=== PATIENT | male | born 1950 | race Caucasian/White ===

== ENCOUNTER 2020-10-03 13:22 | Emergency (ER) | payer MEDICARE, OTHER ==
[~2020-10-03 13:22] MED LIST: ACETAMINOPHEN325 MG PO; AMBIEN5 MG PO; BRILINTA90 MG PO; DOXYCYCLINE HY100 MG PO; FLOMAX0.4 MG PO; LIPITOR40 MG PO; MOBIC7.5 MG PO; NITROQUIK SL0.4 MG SL; OMEPRAZOLE 20MG20 MG PO; OMEPRAZOLE20 M1 PO; ONDANSETRON ODT4 MG PO; SARNA ANTI-ITC222 ML TOP; TAMSULOSIN HCL0.4 MG PO; TOPROL XL 25MG25 MG PO; VENTOLIN HFA IN18 GM INH; ZESTRIL2.5 MG PO
[2020-10-03 14:36] LABS: BASOPHIL 0.9 % (0-2); EOSINOPHIL 4.8 % (0-7); HCT 42.8 % (42.0-52.0); HGB 14.3 g/dl (13.2-18.0); LYMPHOCYTE 30.6 % (15-48); MCH 30.4 pg (25.0-31.0); MCHC 33.4 g/dL (32.0-36.0); MCV 90.9 fL (78.0-100.0); MONOCYTE 11.9 % (0-12); MPV 11.2 fL (6.0-9.5); NEUTROPHIL 51.6 % (41-80); NRBC 0; PLT 152 K/uL (150-400); RBC 4.71 M/uL (4.70-6.00); RDW 12.6 % (11.5-14.0); WBC 5.5 K/uL (4.0-10.5)
[2020-10-03 14:41] LABS: BILIRUBIN NEGATIVE (NEGATIVE); BLOOD NEGATIVE Ery/uL (NEGATIVE); CLARITY CLEAR (CLEAR); COLOR YELLOW (YELLOW); GLUCOSE (U) NORMAL (NORMAL); LEUKOCYTES NEGATIVE Leu/uL (NEGATIVE); NITRITE NEGATIVE (NEGATIVE); PROTEIN NEGATIVE (NEGATIVE); UROBILINOGEN 0.2 mg/dL (0.2-1.0)
[2020-10-03 14:45] LABS: BILIRUBIN - TOTAL 1.1 mg/dL (0.2-1.0); BUN/CREAT RATIO (CALC) 15.2 RATIO; CREATININE 0.99 mg/dL (0.67-1.17); POTASSIUM 4.6 mmol/L (3.5-5.1)
[2020-10-03] MEDS ORDERED: CYCLOBENZAPRINE10 MG PO (15:56)
[2020-10-03] MEDS ORDERED: HYDROCODON-ACE1 EAC2 PO (15:56)
== END 2020-10-03 16:29 | disposition home or self-care (01) ==
LOC: FER 13:22
PROVIDERS: Emergency Medicine
DX: T14.8XXA Other injury of unspecified body region, initial encounter (principal); M54.5 Low back pain; N13.30 Unspecified hydronephrosis; I51.9 Heart disease, unspecified; K21.9 Gastro-esophageal reflux disease without esophagitis; Z88.5 Allergy status to narcotic agent; Z95.5 Presence of coronary angioplasty implant and graft; Z90.49 Acquired absence of other specified parts of digestive tract; W19.XXXA Unspecified fall, initial encounter
CPT/HCPCS: 36415; 80053; 81003; 85025; J1885; J2405

== ENCOUNTER 2021-06-23 23:48 | Emergency (ER) | payer MEDICARE, OTHER ==
[~2021-06-23 23:48] MED LIST changes: +CYCLOBENZAPRINE10 MG PO; +HYDROCODON-ACE1 EAC2 PO
[2021-06-24] MEDS ORDERED: KEFLEX250 MG PO (01:42)
== END 2021-06-24 01:45 | disposition home or self-care (01) ==
LOC: FER 23:48
DX: S60.221A Contusion of right hand, initial encounter (principal); I25.2 Old myocardial infarction; J45.909 Unspecified asthma, uncomplicated; Z88.5 Allergy status to narcotic agent; Z88.6 Allergy status to analgesic agent; W27.8XXA Contact with other nonpowered hand tool, initial encounter
CPT/HCPCS: 73130

== ENCOUNTER 2022-01-02 10:10 | Emergency (ER) | payer MEDICARE, OTHER ==
[~2022-01-02 10:10] MED LIST changes: +KEFLEX250 MG PO
[2022-01-02 11:01] LABS: BASOPHIL 0.6 % (0-2); EOSINOPHIL 1.8 % (0-7); HCT 37.9 % (42.0-52.0); HGB 13.1 g/dl (13.2-18.0); LYMPHOCYTE 14.1 % (15-48); MCH 31.2 pg (25.0-31.0); MCHC 34.6 g/dL (32.0-36.0); MCV 90.2 fL (78.0-100.0); MONOCYTE 9.9 % (0-12); MPV 10.6 fL (6.0-9.5); NEUTROPHIL 73.4 % (41-80); NRBC 0; PLT 163 K/uL (150-400); RDW 12.7 % (11.5-14.0); WBC 8.9 K/uL (4.0-10.5)
[2022-01-02 11:17] LABS: ALBUMIN 3.9 g/dL (3.4-5.0); BUN/CREAT RATIO (CALC) 10.8 RATIO; CREATININE 0.83 mg/dL (0.67-1.17); GLOBULIN (CALCULATION) 2.8 g/dL; POTASSIUM 3.8 mmol/L (3.5-5.1); TOTAL PROTEIN 6.7 g/dL (6.4-8.2)
[2022-01-02 11:29] LABS: LACTIC ACID 1.1 mmol/L (0.4-1.9)
[2022-01-02] MEDS ORDERED: AMOX TR-K CLV1 EAC4 PO (13:23)
== END 2022-01-02 15:27 | disposition home or self-care (01) ==
LOC: FER 10:10
PROVIDERS: Emergency Medicine
DX: J32.0 Chronic maxillary sinusitis (principal); J32.2 Chronic ethmoidal sinusitis; J32.3 Chronic sphenoidal sinusitis; I25.10 Atherosclerotic heart disease of native coronary artery without angina pectoris; Z95.5 Presence of coronary angioplasty implant and graft; Z88.5 Allergy status to narcotic agent
CPT/HCPCS: 36415; 70486; 71250; 80053; 83605; 83880; 84145; 84484; 85025; 93005; 94640; 94664; J0696; J1100

== ENCOUNTER 2022-04-03 18:15 | Emergency (ER) | payer MEDICARE, OTHER ==
[~2022-04-03 18:15] MED LIST changes: +AMOX TR-K CLV1 EAC4 PO
[2022-04-03 19:38] LABS: BASOPHIL 0.7 % (0-2); EOSINOPHIL 1.1 % (0-7); HCT 43.3 % (42.0-52.0); HGB 14.6 g/dl (13.2-18.0); LYMPHOCYTE 17.9 % (15-48); MCH 30.8 pg (25.0-31.0); MCHC 33.7 g/dL (32.0-36.0); MCV 91.4 fL (78.0-100.0); MONOCYTE 19.2 % (0-12); MPV 10.4 fL (6.0-9.5); NEUTROPHIL 60.7 % (41-80); NRBC 0; PLT 148 K/uL (150-400); RBC 4.74 M/uL (4.70-6.00); RDW 13.2 % (11.5-14.0); WBC 5.5 K/uL (4.0-10.5)
[2022-04-03 19:57] LABS: ALBUMIN 4.3 g/dL (3.4-5.0); BUN/CREAT RATIO (CALC) 10.8 RATIO; CREATININE 1.02 mg/dL (0.67-1.17); GLOBULIN (CALCULATION) 2.7 g/dL; POTASSIUM 4.1 mmol/L (3.5-5.1)
[2022-04-03 20:19] LABS: BILIRUBIN NEGATIVE (NEGATIVE); BLOOD NEGATIVE Ery/uL (NEGATIVE); CLARITY CLEAR (CLEAR); COLOR YELLOW (YELLOW); GLUCOSE (U) NORMAL (NORMAL); LEUKOCYTES NEGATIVE Leu/uL (NEGATIVE); NITRITE NEGATIVE (NEGATIVE); PROTEIN NEGATIVE (NEGATIVE); SPECIFIC GRAVITY <=1.005 (1.001-1.030); UROBILINOGEN 0.2 mg/dL (0.2-1.0)
[2022-04-03] MEDS ORDERED: MEDROL 4MG DOSEP4 MG PO (20:43)
[2022-04-03] MEDS ORDERED: PAXLOVID 150-11 EACH PO (20:43)
[2022-04-03] MEDS ORDERED: ZPAK PO (20:43)
== END 2022-04-03 21:16 | disposition home or self-care (01) ==
LOC: FER 18:15
PROVIDERS: Physician Assistant
DX: U07.1 COVID-19 (principal); I25.2 Old myocardial infarction; K21.9 Gastro-esophageal reflux disease without esophagitis; E78.5 Hyperlipidemia, unspecified; Z88.5 Allergy status to narcotic agent; Z79.82 Long term (current) use of aspirin; Z79.02 Long term (current) use of antithrombotics/antiplatelets; Z79.899 Other long term (current) drug therapy
CPT/HCPCS: 36415; 71045; 80053; 81003; 85025; 99283